=== PATIENT | male | born 2000 | race Hispanic/Latino ===

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

== ENCOUNTER → 2023-12-15 14:12 | Outpatient (CLI) | payer OTHER, SELFPAY ==
--- NOTE | 2023-12-15 14:15 | DI.MRI.S_ITS ---
PROCEDURE: MR SHOULDER LT WO CON INDICATIONS: CHRONIC LEFT SHOULDER PAIN TECHNIQUE: Noncontrast oblique coronal T2 fast spin echo with fat saturation, oblique sagittal T1 spin echo and T2 fast spin echo with fat saturation, axial T1 spin echo and T2 fast spin echo with fat saturation through the shoulder. COMPARISON: [facility], CR, XR SHOULDER LT MIN 2V, 06/08/2021, 12:13. FINDINGS: Image quality: Diagnostic Rotator cuff: Bulk: No significant atrophy Teres minor: Intact Supraspinatus: Mild tendinopathy. Infraspinatus: Mild tendinopathy. Subscapularis: Intact Bones and bursae: GH joint: Minimal effusion. No high-grade degenerative changes. AC joint: Mild degenerative changes Humeral head: No acute fracture Scapula and acromion: No acute fracture Bursa: There is mild subacromial subdeltoid bursitis Capsule: Labrum: Not well assessed on this study. No discrete tear. Consider arthrographic evaluation if there is high concern. Long head biceps tendon: Possible mild intra-articular tendinopathy. IGHL: Intact Rotator interval: Partially effaced Soft tissues: No axillary adenopathy. Lungs are not well seen. IMPRESSION: Low-grade tendinopathy of the supraspinatus and infraspinatus. No full-thickness defect. Mild acromioclavicular degenerative changes with adjacent mild subacromial/subdeltoid bursitis. Minimal glenohumeral joint effusion. No high-grade degenerative changes. Partially effaced rotator interval, sometimes seen with capsulitis. If there is further concern for labral abnormality, consider MR arthrographic evaluation. Dictated by: Benton Thorpe M.D. on 12/16/2023 at 14:01 Approved by: Benton Thorpe M.D. on 12/16/2023 at 14:07
== END ==
LOC: MRI 14:14
PROVIDERS: Family Provider Nurse Practitioner; PCP Nurse Practitioner; Referring Provider Physician Assistant; Visit Provider Physician Assistant
DX: S46.012A Strain of muscle(s) and tendon(s) of the rotator cuff of left shoulder, initial encounter (principal); M75.52 Bursitis of left shoulder; M25.512 Pain in left shoulder; G89.29 Other chronic pain
CPT/HCPCS: 73221